=== PATIENT | female | born 1980 | race Hispanic/Latino ===

== ENCOUNTER → 2023-05-11 | Outpatient (CLI) | payer BC | END | disposition home or self-care (01) | LOC: RAH 13:05 | PROVIDERS: ATTEND Family Medicine | DX: Z12.31 Encounter for screening mammogram for malignant neoplasm of breast (principal) | CPT/HCPCS: 77067 ==

== ENCOUNTER → 2024-05-14 | Outpatient (CLI) | payer BC ==
--- NOTE | 2024-05-15 09:42 | HMCIMG ---
SCREENING MAMMOGRAM WITH TOMOSYNTHESIS REASON: Annual exam. COMPARISON: 05/11/2023 TECHNIQUE: CC and MLO views of the bilateral breasts were performed. Tomosynthesis was performed in both projections.CAD was performed as well. FINDINGS: Parenchymal density:Parenchymal density: The breasts are heterogeneously dense, which may obscure small masses. There is a well-circumscribed 9 x 12 mm nodule upper outer quadrant of the right breast 3 cm above and lateral to the nipple. This is visible only on the tomogram images. There are no other focal nodules. There are no pathologic appearing calcifications. There is no evidence of architectural distortion or skin thickening. IMPRESSION: 1. 9 x 12 mm well-circumscribed nodule upper outer quadrant of the right breast seen only on tomogram images, 3 cm above and lateral to the nipple. 2. Ultrasound of this area recommended for further evaluation. 3. Otherwise unremarkable exam. The patient was entered into a reminder system with a target due date for their next mammogram. BI-RADS CATEGORY 0: INCOMPLETE. NEED ADDITIONAL IMAGING EVALUATION Recommend monthly self breast exam as well as annual clinical examination. A negative x-ray should not delay biopsy if a dominant or clinically suspicious mass is present, since 8-10% of cancers are not identified by mammography. Dense breasts particularly, may obscure an underlying neoplasm. Some of these may be detected clinically and therefore, clinical examination is an essential part of breast evaluation.
== END | disposition home or self-care (01) ==
LOC: RAH 15:16
PROVIDERS: ATTEND Family Medicine
DX: Z12.31 Encounter for screening mammogram for malignant neoplasm of breast (principal); R92.333 Mammographic heterogeneous density, bilateral breasts; N63.11 Unspecified lump in the right breast, upper outer quadrant
CPT/HCPCS: 77063; 77067

== ENCOUNTER → 2024-05-29 | Outpatient (CLI) | payer BC ==
--- NOTE | 2024-05-30 08:46 | HMCIMG ---
US BREAST COMPLETE UNILATERAL REASON: UNSP LUMP IN RT BREAST COMPARISON: Screening mammograms with tomographic technique 05/14/2024 TECHNIQUE: Right breast ultrasound was performed and compared to the mammogram images. FINDINGS: Mammogram images suggested a nodule upper outer quadrant right breast. Ultrasound demonstrates a well-circumscribed 8 x 9 mm complex cyst or sonolucent nodule 12:00 position. Nodule is favored as there is no acoustical enhancement. There is a similar lesion in the 1:00 position, this measures 12.1 x 12.4 cm. This also is sonolucent, wider than tall, well-circumscribed and without acoustical enhancement, consistent with a small nodule. There is complex cyst at the 1:00 position measuring 6 mm. There is a 4 mm cyst at 9:00 and an additional 2 mm cyst at 10:00. There are some normal-appearing lymph nodes in the axilla. IMPRESSION: 1. 12 mm well-circumscribed nodule 1:00 position of the left breast, there is an additional 9 mm nodule in the 12:00 position, both are well-circumscribed, wider than tall and sonolucent. 2. 6 month ultrasound follow-up could be performed on these lesions to ensure stable appearance, alternatively ultrasound-guided biopsy could be performed of the 12 mm nodule. 3. There are several small cysts in the upper outer quadrant, the exam is otherwise unremarkable.
== END | disposition home or self-care (01) ==
LOC: RAH 13:40
PROVIDERS: ATTEND Obstetrics & Gynecology
DX: N60.01 Solitary cyst of right breast (principal); N63.21 Unspecified lump in the left breast, upper outer quadrant; N63.25 Unspecified lump in the left breast, overlapping quadrants; N60.02 Solitary cyst of left breast
CPT/HCPCS: 76641

== ENCOUNTER → 2024-12-12 | Outpatient (CLI) | payer BC ==
--- NOTE | 2024-12-13 11:15 | HMCIMG ---
Right BREAST ULTRASOUND: COMPARISON: Prior ultrasound of the right breast from 05/29/2024 is available. Findings: Real-time examination of the [right/left] breast demonstrates heterogeneous echotexture throughout the breast. The right breast at 1:00 there is a hypoechoic lesion measuring 1.0 x 0.7 x 1.0 cm. The right breast at 11:00 there is a solid hypoechoic lesion measuring 1.0 x 0.5 x 0.9 cm. The right breast at 8:00 there is a cyst measuring 0.5 x 0.4 x 0.5 cm. The right breast at 9:00 there is a cyst measuring 0.3 x 0.3 x 0.3 cm. IMPRESSION: 2 hypoechoic lesion seen in the right breast and 2 cysts as described above. I would recommend correlation with mammogram with tomography. CATEGORY 0: INCOMPLETE. NEED ADDITIONAL IMAGING EVALUATION Recommend monthly self breast exam as well as annual clinical examination. A negative x-ray should not delay biopsy if a dominant or clinically suspicious mass is present, since 8-10% of cancers are not identified by mammography. Dense breasts particularly, may obscure an underlying neoplasm. Some of these may be detected clinically and therefore, clinical examination is an essential part of breast evaluation. .
== END | disposition home or self-care (01) ==
LOC: RAH 13:21
PROVIDERS: ATTEND Obstetrics & Gynecology
DX: N60.01 Solitary cyst of right breast (principal); N63.11 Unspecified lump in the right breast, upper outer quadrant
CPT/HCPCS: 76641

== ENCOUNTER → 2025-01-01 | Outpatient (CLI) | payer BC, SELFPAY ==
[2025-01-01 08:50] LABS: INR 1.08 (0.85-1.15)
--- NOTE | 2025-01-01 10:25 | NUR ---
ULTRASOUND GUIDED RIGHT BREAST NODULE BX PROCEDURE PERFORMED BY DR. SOLITARIO RANDALL. PUNCTURE SITE RIGHT BREAST AT 12-1 O'CLOCK AND 11 O'CLOCK AND PATIENT TOLERATED PROCEDURE WELL. SPECIMEN X7 COLLECTED AND SENT TO LAB. TISSUE MARKER X2 PLACED BY DR. RANDALL. END OF PROCEDURE AT 1010. BIOPSY NEEDLE REMOVED AND BAND-AIDS X2 APPLIED- NO BLEEDING NOTED. ICE PACK APPLIED TO RIGHT BREAST. DISCHARGE INSTRUCTIONS GIVEN TO PATIENT AND VERBALIZED UNDERSTANDING. PATIENT DISCHARGED AMBULATORY AND ALERT WITH NO C/O PAIN ACCOMPANIED BY SPOUSE.
--- NOTE | 2025-01-01 11:47 | HMCIMG ---
DIGITAL right breast DIAGNOSTIC MAMMOGRAM postbiopsy with placement of biopsy marker Technique: The digital mammographic examination of right breast in craniocaudal, mediolateral oblique views along with CAD was obtained. History: This is a 44 years year-old female 3, para3 Ab0 . Patient has sister with family history of breast cancer. Patient has no complaint patient is status post ultrasound-guided biopsy of the right breast at 12 1:00 and 11:00 Reference:Prior mammogram from 05/14/2024, 05/11/2023 and 05/05/2022 are available. Breast composition: Breast composition C: The breasts are heterogeneously dense, which may obscure small masses. Finding: The digital mammographic examination of right breast in craniocaudal and mediolateral oblique view along with CAD demonstrates to be moderately dense. The right breast has a biopsy marker in satisfactory position at 12:00 and at 11:00 of the right breast.. There is no evidence of any dendritic mass, cluster microcalcification or architectural distortion. The retromammary fat appears to be normal. IMPRESSION: The biopsy markers are in satisfactory position.. FINAL ASSESSMENT: Post-procedure Mammogram for Marker Placement. NOTE: IF A WORK-UP OF THIS PATIENT LEADS TO A BIOPSY, PLEASE FORWARD A COPY OF THE PATHOLOGY REPORT TO OUR OFFICE REQUIRED BY [facility] EFFECTIVE JANUARY 28, 1994. A NEGATIVE MAMMOGRAM SHOULD NOT PRECLUDE BIOPSY OF A CLINICALLY PALPABLE SUSPICIOUS MASS, 10% OF BREAST CANCERS ARE MAMMOGRAPHICALLY OCCULT. THIS MAMMOGRAPHY FACILITY IS FULLY ACCREDITED BY THE [employer] (FDA). THANK YOU FOR THIS REFERRAL.
--- NOTE | 2025-01-01 12:58 | HMCIMG ---
PERCUTANEOUS ULTRASOUND-GUIDED BIOPSY OF right BREAST MASS at 12:00 and 11:00: CLINICAL HISTORY: This is a 44 [id number] female with 2 lesion seen in the right breast at 12:00 and 11:00 for ultrasound-guided biopsy. The risk and benefit was explained to the patient. The risks include bleeding and infection. The patient consented to the procedure. Procedure: Under ultrasound guidance both lesions where localized. After sterile prep and drape, 1% Xylocaine was used for local anesthetic. Using a [id number] Bard gun a total of 3 core biopsy was obtained of both lesions.. The specimen was sent for histology and cell block. Patient tolerated procedure well. IMPRESSION: Pathology report is pending. 1. PERCUTANEOUS ULTRASOUND-GUIDED BIOPSY OF right BREAST at 12 11:00 WITH SPECIMENS SENT FOR HISTOLOGY AND CELL BLOCK. THE PATIENT TOLERATED PROCEDURE WELL. PATHOLOGY REPORT IS PENDING. 2. PATIENT IS TO HAVE A POST BIOPSY MARKER PLACEMENT UNILATERAL right BREAST MAMMOGRAM.
== END ==
LOC: RAH 08:26
PROVIDERS: ATTEND Obstetrics & Gynecology
DX: N63.11 Unspecified lump in the right breast, upper outer quadrant (principal); N60.21 Fibroadenosis of right breast; N63.12 Unspecified lump in the right breast, upper inner quadrant; N63.15 Unspecified lump in the right breast, overlapping quadrants; Z82.49 Family history of ischemic heart disease and other diseases of the circulatory system; Z83.3 Family history of diabetes mellitus
CPT/HCPCS: 19083; 77065; 85610; 85730; 36415; 88305; 19084; A4215 ×2